=== PATIENT | male | born 1945 | race Caucasian/White ===

== ENCOUNTER 2016-05-19 13:38 | Emergency (ER) | payer OTHER ==
[~2016-05-19] VITALS: Ht 180.3 cm; Wt 126.0 kg
[2016-05-19 13:43] VITALS: BP 142/71; PULSE 58; RESP 16; TEMP 98.2; O2SAT 94
[2016-05-19] MEDS ORDERED: ONDANSETRON HCL 4 MG/2 ML VIAL IM ONE (14:00)
[2016-05-19] MEDS ORDERED: KETOROLAC TROMETHAMINE 60 MG/2 ML (IM) VIAL IM ONE (14:00)
[2016-05-19] MEDS ORDERED: HYDROmorphone HCL PF 1 MG/ML VIAL IM ONE (14:00)
[2016-05-19] MEDS ORDERED: OXYC1TAB36 PO ×2 (14:01→14:51)
[2016-05-19] MEDS ORDERED: ASPI325T PO (14:01)
[2016-05-19] MEDS ORDERED: FISH1200 PO (14:01)
[2016-05-19] MEDS ORDERED: FURO40TA PO (14:01)
[2016-05-19] MEDS ORDERED: NITR1CAP36 PO (14:01)
[2016-05-19] MEDS ORDERED: POTA-245 PO (14:01)
[2016-05-19] MEDS ORDERED: ALFU10TA2 PO (14:01)
[2016-05-19] MEDS ORDERED: ATEN50TA PO (14:01)
[2016-05-19] MEDS ORDERED: ATOR40TA16 PO (14:01)
[2016-05-19] MEDS ORDERED: CLAR10CA3 PO (14:01)
[2016-05-19] MEDS ORDERED: METF500T PO (14:01)
[2016-05-19] MEDS ORDERED: METO5TAB3 PO (14:01)
[2016-05-19] MEDS ORDERED: NEXI20CA PO (14:01)
--- NOTE | 2016-05-19 14:29 | PD ---
HPI Chief Complaint: Musculoskeletal Complaint Time Seen by Provider: 14:24 Travel History International Travel<30 days: No Contact w/Intl Traveler<30days: No Traveled to known affect area: No History of Present Illness HPI 70-year-old male that presents to the ED for evaluation of lower back pain to raise the right leg. Per patient she's had this for about 2 days now. Per patient he does have a history of back problems having surgery on his back and neck but no recent surgery. Per patient he takes chronic pain medication when he has discomfort but he ran out of his Percocet about 2 days ago. He is here visiting. 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 Per patient his been doing ice as well as icy hot with some improvement but the pain today got worse. Per patient he has difficulty ambulating because movement makes the pain worse. He denies any falls or injuries. Denies any numbness, tilling, weakness. Allergies to Darvon. Has not seen anybody for this. States that his pain at the moment we are moving is 4 out of 10 but whenever he moves or he comes the pain is 10 out of 10. Per patient is sharp. Denies any other medical problem at this time. Denies any saddle anesthesia, BM or urinary issues. PFSH Past Medical History High Cholesterol: Yes Diabetes: Yes Patient Takes Glucophage: Yes Hypertension: Yes Medical other: Yes (chronic back surgerys) Tetanus Vaccination: < 5 Years Influenza Vaccination: No Past Surgical History Appendectomy: Yes Cholecystectomy: Yes Social History Alcohol Use: Yes Tobacco Use: No Substance Use: No Allergies-Medications (Allergen,Severity, Reaction): Coded Allergies: Darvon (Verified Allergy, Intermediate, hives, 05/19/16) Reported Meds & Prescriptions Reported Meds & Active Scripts Active Ibuprofen 800 Mg Tab 800 Mg PO Q8H PRN Oxycodone-Acetaminophen 10-325 mg Tab 1 Tab PO Q6H PRN Reported Nitrofurantoin Macrocrystal 100 Mg Cap 100 Mg PO DAILY Fish Oil 1200 mg (Ava-3 Fatty Acids) 1 Cap Cap 1 Cap PO DAILY Metolazone 5 Mg Tab 5 Mg PO DAILY Alfuzosin ER 24 HR 10 Mg Tab 10 Mg PO DAILY Claritin (Loratadine) 10 Mg Cap 10 Mg PO DAILY Aspirin 325 Mg Tab 325 Mg PO DAILY Nexium (Esomeprazole DR) 20 Mg Capdr 20 Mg PO EVERY OTHER DAY Metformin (Metformin HCl) 500 Mg Tab 500 Mg PO DAILY With a meal Klor-Con M20 (Potassium Chloride Microencaps) 20 Meq Tab 4 Tab PO DAILY Atorvastatin (Atorvastatin Calcium) 40 Mg Tab 40 Mg PO HS Furosemide 40 Mg Tab 60 Mg PO DAILY Atenolol 50 Mg Tab 50 Mg PO DAILY Review of Systems Except as stated in HPI: all other systems reviewed are Neg Physical Exam Narrative GENERAL: SKIN: Warm and dry. Patient does have first-degree sunburns on the legs and chest as well as the arms and the face. HEAD: Atraumatic. Normocephalic. EYES: Pupils equal and round. No scleral icterus. No injection or drainage. ENT: No nasal bleeding or discharge. Mucous membranes pink and moist. Tongue is midline. No uvula deviation. NECK: Trachea midline. No JVD. CARDIOVASCULAR: Regular rate and rhythm. No murmurs, S3, S4. RESPIRATORY: No accessory muscle use. Clear to auscultation. Breath sounds equal bilaterally. GASTROINTESTINAL: Abdomen soft, non-tender, nondistended. Hepatic and splenic margins not palpable. MUSCULOSKELETAL: Extremities without clubbing, cyanosis, or edema. No obvious deformities. Patient does have old surgical scars to his lumbar spine. Patient has some reproducible pain with movement on the right leg especially with flexion and extension of the right leg. No obvious point tenderness noted. No cervical, thoracic, lumbar spine tenderness to palpation. 2+ pulses in the lower extremities. Full range of motion of the lower extremities otherwise. NEUROLOGICAL: Awake and alert. No obvious cranial nerve deficits. Motor grossly within normal limits. Five out of 5 muscle strength in the arms and legs. Normal speech. PSYCHIATRIC: Appropriate mood and affect; insight and judgment normal. Data Data Last Documented VS Vital Signs Date Time Temp Pulse Resp B/P Pulse Ox O2 Delivery O2 Flow Rate FiO2 05/19/16 14:55 18 05/19/16 13:43 98.2 58 142/[address] Lumb Spine W/O Contrast (05/19/16 13:57) Ketorolac Inj (Toradol Inj) (05/19/16 14:00) Hydromorphone Pf Inj (Dilaudid Pf Inj) (05/19/16 14:00) Ondansetron Inj (Zofran Inj) (05/19/16 14:00) MDM Medical Decision Making Medical Screen Exam Complete: Yes Emergency Medical Condition: Yes Medical Record Reviewed: Yes Interpretation(s) Last Impressions Lumbar Spine CT 05/19/16 2997 Signed Impressions: Service Date/Time: Thursday, May 19, 2016 14:25 - CONCLUSION: Posterior fusion from the level of L3-S1. There is a large broad-based disc protrusion present at the level of L2/L3 which causes narrowing of the spinal canal as well as the neural foramina.. Desirae Scanlon MD Differential Diagnosis Sciatica versus muscle strain versus muscle spasm versus acute on chronic pain versus chronic pain Narrative Course 70-year-old male that presents to the ED for evaluation of lower back pain. Patient was properly examined and was found to have signs and symptoms which appear to be very consistent with sciatica. Patient denies any falls or other injuries. Patient has no neurological deficits at this time. Recommend imaging to make sure patient does not have any acute disease as he does have a history of surgeries to his back. Patient's agreement with this. CT was done and showed chronic disease with disc protrusion. No neurological symptoms at this time other than pain. Case discussed with my attending Dr Pinzon who agrees with outpatient f/u and pain treatment. Patient was given IM doses of pain medication with good relief. Patient will be sent home with prescription for Percocet, diclofenac sodium. Ice or warm compresses. Rest as needed. Told to follow closely with PCP. See ED worsening symptoms. Diagnosis Primary Impression: Sciatica of right side Additional Impression: Protrusion of intervertebral disc of lumbosacral region Patient Instructions: General Instructions, Narcotic given in the ED Additional Instructions: Take medications as prescribed. Follow-up with PCP when you get home See ED for any worsening symptoms. Do not drink or drive while taking pain medication. Apply ice or heat as needed for pain. Med/Other Pt SpecificInfo: Prescription(s) given Scripts Ibuprofen 800 Mg [id number] Mg PO Q8H PRN (Pain/Inflammation) #30 TAB Prov:Germain Pinzon MD 05/19/16 Oxycodone-Acetaminophen 10-325 mg Tab1 Tab PO Q6H PRN (PAIN) #15 TAB Ref 0 Prov:Germain Pinzon MD 05/19/16 Disposition: 01 DISCHARGE HOME Condition: Stable Bruce Rodriguez May 19, 2016 14:29
[2016-05-19] MEDS ORDERED: IBUP800T23 PO (14:51)
[2016-05-19 14:55] VITALS: RESP 18
--- NOTE | 2016-05-19 14:59 | RADHPO ---
EXAM DATE/TIME: 05/19/2016 14:25 [facility] COMPARISON: No previous studies available for comparison. INDICATIONS : Lower back and right leg pain. RADIATION DOSE: 40.30 CTDIvol (mGy) MEDICAL HISTORY : Hypertension. Diabetes mellitus type 2. SURGICAL HISTORY : Fusion, lumbar. ENCOUNTER: Initial ACUITY: 1 day PAIN SCALE: 6/10 LOCATION: Right Leg TECHNIQUE: Volumetric scanning of the lumbar spine was performed. Multiplanar reconstructions in the sagittal, coronal and oblique axial planes were performed. Using automated exposure control and adjustment of the mA and/or kV according to patient size, radiation dose was kept as low as reasonably achievable t o obtain optimal diagnostic quality images. FINDINGS: VERTEBRAE: Normal vertebral body height. ALIGNMENT: No evidence of subluxation. There is posterior fusion hardware present from the level of L3-S1. T12-L1: The thecal sac has a normal diameter. No evidence of disc bulge or protrusion. The neural foramina are patent bilaterally. L1-L2: The thecal sac has a normal diameter. No evidence of disc bulge or protrusion. The neural foramina are patent bilaterally. L2-L3: There is a broad-based posterior disc protrusion present which combined with the moderate bilateral f acet degenerative change contribute to moderate to severe narrowing of the neural foramina at all can al.. L3-L4: The thecal sac has a normal diameter. No evidence of disc bulge or protrusion. The neural foramina are patent bilaterally. L4-L5: The thecal sac has a normal diameter. No evidence of disc bulge or protrusion. The neural foramina are patent bilaterally. L5-S1: The thecal sac has a normal diameter. No evidence of disc bulge or protrusion. The neural foramina are patent bilaterally. CONCLUSION: Posterior fusion from the level of L3-S1. There is a large broad-based disc protrusion present at the level of L2/L3 which causes narrowing of the spinal canal as well as the neural foramina.. Desirae Scanlon MD on May 19, 2016 at 14:55 Board Certified Radiologist. This report was verified electronically.
[2016-05-19] MEDS ORDERED: PRED20 PO (15:10)
== END 2016-05-19 15:31 | disposition home or self-care (01) ==
LOC: PHEFT 13:38
DX: M54.31 Sciatica, right side (principal); E78.00 Pure hypercholesterolemia, unspecified; E11.9 Type 2 diabetes mellitus without complications; I10 Essential (primary) hypertension; Z79.82 Long term (current) use of aspirin; Z79.899 Other long term (current) drug therapy
CPT/HCPCS: 72131; 96372; 99283; J1170; J1885